=== PATIENT | female | born 1935 | race Caucasian/White ===

== ENCOUNTER → 2021-11-16 | Outpatient (REF) ==
[2021-11-16 08:06] LABS: HEMATOCRIT 29.3 % (36.0-47.0); HEMOGLOBIN 9.7 g/dl (12.0-15.5); MEAN CORPUSCULAR HEMOGLOBIN 29.8 pg (27.0-33.0); MEAN CORPUSCULAR HGB CONC 33.1 g/dl (32.0-36.5); MEAN CORPUSCULAR VOLUME 90.2 fl (80.0-96.0); PLATELET COUNT, AUTOMATED 470 10^3/uL (150-450); RED BLOOD COUNT 3.25 10^6/uL (4.00-5.40); WHITE BLOOD COUNT 4.5 10^3/uL (4.0-10.0)
[2021-11-16 08:40] LABS: ALBUMIN 2.8 GM/DL (3.2-5.2); ALT/SGPT 45 U/L (12-78); BILIRUBIN,TOTAL 0.4 MG/DL (0.2-1.0); BLOOD UREA NITROGEN 19 MG/DL (7-18); CALCIUM LEVEL 8.7 MG/DL (8.8-10.2); CARBON DIOXIDE LEVEL 33 MEQ/L (21-32); CHLORIDE LEVEL 101 MEQ/L (98-107); CREATININE FOR GFR 0.46 MG/DL (0.55-1.30); GLOMERULAR FILTRATION RATE > 60.0 (>32); GLUCOSE, FASTING 84 MG/DL (70-100); MAGNESIUM LEVEL 2.3 MG/DL (1.8-2.4); POTASSIUM SERUM 4.2 MEQ/L (3.5-5.1); SODIUM LEVEL 137 MEQ/L (136-145); TOTAL PROTEIN 5.9 GM/DL (6.4-8.2)
[2021-11-16 12:28] LABS: TOTAL 25(OH) VITAMIN D 47.6 NG/ML (30.0-100.0)
== END ==
LOC: SKLAB4 07:00
PROVIDERS: ATTEND Internal Medicine
DX: M81.0 Age-related osteoporosis without current pathological fracture (principal)

== ENCOUNTER → 2021-12-23 | Outpatient (REF) ==
[2021-12-23 11:55] LABS: HEMATOCRIT 31.7 % (36.0-47.0); HEMOGLOBIN 10.4 g/dl (12.0-15.5); MEAN CORPUSCULAR HEMOGLOBIN 31.6 pg (27.0-33.0); MEAN CORPUSCULAR HGB CONC 32.8 g/dl (32.0-36.5); MEAN CORPUSCULAR VOLUME 96.4 fl (80.0-96.0); PLATELET COUNT, AUTOMATED 316 10^3/uL (150-450); RED BLOOD COUNT 3.29 10^6/uL (4.00-5.40); WHITE BLOOD COUNT 3.7 10^3/uL (4.0-10.0)
== END ==
LOC: SKLAB4 10:04
PROVIDERS: ATTEND Internal Medicine
DX: D64.9 Anemia, unspecified (principal)

== ENCOUNTER → 2021-12-28 | Outpatient (REF) | LOC: SKLAB4 13:45 | PROVIDERS: ATTEND Internal Medicine | DX: Z20.822 Contact with and (suspected) exposure to COVID-19 (principal) ==

== ENCOUNTER → 2021-12-29 | Outpatient (REF) | LOC: SKLAB4 12:11 | PROVIDERS: ATTEND Internal Medicine | DX: M81.0 Age-related osteoporosis without current pathological fracture (principal) ==

== ENCOUNTER 2022-02-02 18:54 | Emergency (ER) | payer MEDICARE ==
[~2022-02-02] VITALS: Ht 160 cm; Wt 39.5 kg
[2022-02-02] MEDS ORDERED: NORCO, ANEXSIA 5/325MG TABLET (HYDROcodone/ACETAMINOPHEN) PO ONE (20:00)
[2022-02-02] MEDS ORDERED: NAPR-837 PO (20:03)
[2022-02-02 21:30] VITALS: BP 147/74
[2022-02-03] MEDS ORDERED: NAPR-837 PO (14:24)
== END 2022-02-02 21:36 | disposition home or self-care (01) ==
LOC: M ED 18:54 → EDBD 18:54 → M ED 21:36
DX: S52.501A Unspecified fracture of the lower end of right radius, initial encounter for closed fracture (principal); W01.0XXA Fall on same level from slipping, tripping and stumbling without subsequent striking against object, initial encounter; Z88.2 Allergy status to sulfonamides; Y92.099 Unspecified place in other non-institutional residence as the place of occurrence of the external cause; Y93.9 Activity, unspecified; Y99.9 Unspecified external cause status

== ENCOUNTER → 2022-02-09 | Outpatient (CLI) | payer MEDICARE ==
[~2022-02-09] MED LIST: ACET1TAB55 PO; CALC1WAF2 PO; COLA100C5 PO; DRIS50003 PO; ESSE250T PO; LIDO5DIS41 TD; MAGICMW SSP; NAPR-837 PO; PYRI100L PO
== END ==
LOC: M LABSMTC 10:43
PROVIDERS: ATTEND Anesthesiology
DX: Z11.52 Encounter for screening for COVID-19 (principal); Z20.822 Contact with and (suspected) exposure to COVID-19

== ENCOUNTER 2022-02-12 13:03 | Inpatient (IN) | payer MEDICARE ==
[~2022-02-12] VITALS: Ht 157.5 cm; Wt 52.3 kg
[2022-02-12] MEDS: PANTOPRAZOLE 40MG TAB (PROTONIX) PO SCH (09:00)
[~2022-02-12 13:03] MED LIST changes: -ACET1TAB55 PO
[2022-02-12 14:21] LABS: BASO # 0.1 10^3/uL (0.0-0.2); BASO % 1.1 % (0.0-1.0); EOS % 0.7 % (0.0-3.0); HEMATOCRIT 34.8 % (36.0-47.0); HEMOGLOBIN 11.6 g/dl (12.0-15.5); LYMPH # 0.9 10^3/uL (1.5-5.0); LYMPH % 16.7 % (24.0-44.0); MEAN CORPUSCULAR HEMOGLOBIN 30.7 pg (27.0-33.0); MEAN CORPUSCULAR HGB CONC 33.3 g/dl (32.0-36.5); MEAN CORPUSCULAR VOLUME 92.1 fl (80.0-96.0); MONO # 0.7 10^3/uL (0.0-0.8); MONO % 12.9 % (2.0-8.0); NEUTROPHILS # 3.8 10^3/uL (1.5-8.5); NEUTROPHILS % 68.2 % (36.0-66.0); PLATELET COUNT, AUTOMATED 330 10^3/uL (150-450); RED BLOOD COUNT 3.78 10^6/uL (4.00-5.40); WHITE BLOOD COUNT 5.6 10^3/uL (4.0-10.0)
[2022-02-12 14:42] LABS: ALBUMIN 3.4 GM/DL (3.2-5.2); ALT/SGPT 24 U/L (12-78); BILIRUBIN,TOTAL 0.3 MG/DL (0.2-1.0); BLOOD UREA NITROGEN 21 MG/DL (7-18); CARBON DIOXIDE LEVEL 33 MEQ/L (21-32); CHLORIDE LEVEL 99 MEQ/L (98-107); CREATININE FOR GFR 0.66 MG/DL (0.55-1.30); GLOMERULAR FILTRATION RATE > 60.0 (>32); GLUCOSE, FASTING 85 MG/DL (70-100); MAGNESIUM LEVEL 2.5 MG/DL (1.8-2.4); PHOSPHORUS LEVEL 4.3 MG/DL (2.5-4.9); POTASSIUM SERUM 4.3 MEQ/L (3.5-5.1); SODIUM LEVEL 138 MEQ/L (136-145); TOTAL PROTEIN 6.6 GM/DL (6.4-8.2)
[2022-02-12] MEDS ORDERED: ACET1TAB55 PO (17:33)
[2022-02-12] MEDS ORDERED: HOME MED LIST COMPLETE! XX SCH (17:35)
[2022-02-12] MEDS: dexameTHASONE 4 MG/ML 1ML VIAL (J1100 PER 1MG) IV SCH (19:57)
[2022-02-12] MEDS ORDERED: REMDESIVIR 200 MG in NS 250 ML IV ONE (20:00)
[2022-02-12] MEDS ORDERED: SODIUM CHLORIDE 0.9% INJ 10 ML SYR IV ONE (21:00)
[2022-02-13 07:22] LABS: BASO % 0.4 % (0.0-1.0); HEMATOCRIT 33.8 % (36.0-47.0); HEMOGLOBIN 11.3 g/dl (12.0-15.5); LYMPH # 0.8 10^3/uL (1.5-5.0); LYMPH % 16.1 % (24.0-44.0); MEAN CORPUSCULAR HEMOGLOBIN 30.5 pg (27.0-33.0); MEAN CORPUSCULAR HGB CONC 33.4 g/dl (32.0-36.5); MEAN CORPUSCULAR VOLUME 91.4 fl (80.0-96.0); MONO # 0.4 10^3/uL (0.0-0.8); MONO % 7.2 % (2.0-8.0); NEUTROPHILS # 3.9 10^3/uL (1.5-8.5); NEUTROPHILS % 75.9 % (36.0-66.0); PLATELET COUNT, AUTOMATED 315 10^3/uL (150-450); WHITE BLOOD COUNT 5.2 10^3/uL (4.0-10.0)
[2022-02-13 07:52] LABS: ALT/SGPT 20 U/L (12-78); BILIRUBIN,DIRECT 0.1 MG/DL (0.0-0.2); BILIRUBIN,TOTAL 0.2 MG/DL (0.2-1.0); BLOOD UREA NITROGEN 20 MG/DL (7-18); CALCIUM LEVEL 9.3 MG/DL (8.8-10.2); CARBON DIOXIDE LEVEL 31 MEQ/L (21-32); CHLORIDE LEVEL 104 MEQ/L (98-107); CREATININE FOR GFR 0.66 MG/DL (0.55-1.30); GLOMERULAR FILTRATION RATE > 60.0 (>32); GLUCOSE, FASTING 96 MG/DL (70-100); MAGNESIUM LEVEL 2.4 MG/DL (1.8-2.4); POTASSIUM SERUM 4.4 MEQ/L (3.5-5.1); SODIUM LEVEL 140 MEQ/L (136-145); TOTAL PROTEIN 6.2 GM/DL (6.4-8.2)
[2022-02-13] MEDS: ENOXAPARIN 40MG/0.4ML SYRINGE (J1650 PER 10MG) SC SCH (09:31)
[2022-02-13] MEDS: PANTOPRAZOLE 40MG TAB (PROTONIX) PO SCH (09:31)
[2022-02-13 12:00] VITALS: BP 145/72
[2022-02-13] MEDS: dexameTHASONE 4 MG/ML 1ML VIAL (J1100 PER 1MG) IV SCH (17:13)
[2022-02-13 19:19] VITALS: BP_SYST 163; BP_SYST 170; BP_DIAS 75; BP_DIAS 79
[2022-02-13] MEDS: REMDESIVIR 100 MG in NS 250 ML IV SCH (19:42)
[2022-02-13] MEDS: SODIUM CHLORIDE 0.9% INJ 10 ML SYR IV SCH (21:00)
[2022-02-14 04:55] VITALS: BP 148/88
[2022-02-14 06:16] LABS: BASO % 0.2 % (0.0-1.0); HEMATOCRIT 30.7 % (36.0-47.0); HEMOGLOBIN 10.2 g/dl (12.0-15.5); LYMPH # 0.7 10^3/uL (1.5-5.0); LYMPH % 13.3 % (24.0-44.0); MEAN CORPUSCULAR HEMOGLOBIN 30.6 pg (27.0-33.0); MEAN CORPUSCULAR HGB CONC 33.2 g/dl (32.0-36.5); MEAN CORPUSCULAR VOLUME 92.2 fl (80.0-96.0); MONO # 0.4 10^3/uL (0.0-0.8); NEUTROPHILS # 4.3 10^3/uL (1.5-8.5); NEUTROPHILS % 78.1 % (36.0-66.0); PLATELET COUNT, AUTOMATED 318 10^3/uL (150-450); RED BLOOD COUNT 3.33 10^6/uL (4.00-5.40); WHITE BLOOD COUNT 5.5 10^3/uL (4.0-10.0)
[2022-02-14 06:27] LABS: INR 0.92; PROTHROMBIN TIME 12.8 SECONDS (12.7-14.5)
[2022-02-14 06:28] LABS: PARTIAL THROMBOPLASTIN TIME 32.6 SECONDS (25.9-37.0)
[2022-02-14 06:55] LABS: ALBUMIN 2.9 GM/DL (3.2-5.2); ALT/SGPT 21 U/L (12-78); BILIRUBIN,DIRECT < 0.1 MG/DL (0.0-0.2); BILIRUBIN,TOTAL 0.4 MG/DL (0.2-1.0); BLOOD UREA NITROGEN 26 MG/DL (7-18); CALCIUM LEVEL 8.5 MG/DL (8.8-10.2); CARBON DIOXIDE LEVEL 29 MEQ/L (21-32); CHLORIDE LEVEL 105 MEQ/L (98-107); CREATININE FOR GFR 0.59 MG/DL (0.55-1.30); FERRITIN 46 NG/ML (8-252); GLOMERULAR FILTRATION RATE > 60.0 (>32); GLUCOSE, FASTING 89 MG/DL (70-100); MAGNESIUM LEVEL 2.1 MG/DL (1.8-2.4); POTASSIUM SERUM 3.9 MEQ/L (3.5-5.1); SODIUM LEVEL 138 MEQ/L (136-145); TOTAL PROTEIN 6.4 GM/DL (6.4-8.2)
[2022-02-14] MEDS: PANTOPRAZOLE 40MG TAB (PROTONIX) PO SCH (08:57)
[2022-02-14] MEDS: ENOXAPARIN 40MG/0.4ML SYRINGE (J1650 PER 10MG) SC SCH (08:57)
[2022-02-14 12:00] VITALS: BP 158/74
[2022-02-14] MEDS: dexameTHASONE 4 MG/ML 1ML VIAL (J1100 PER 1MG) IV SCH (17:42)
[2022-02-14] MEDS: REMDESIVIR 100 MG in NS 250 ML IV SCH (19:46)
[2022-02-14 20:00] VITALS: BP 120/62
[2022-02-14] MEDS: SODIUM CHLORIDE 0.9% INJ 10 ML SYR IV SCH (21:00)
[2022-02-15 06:00] VITALS: BP 150/65
[2022-02-15 06:08] LABS: BASO % 0.2 % (0.0-1.0); HEMATOCRIT 27.1 % (36.0-47.0); HEMOGLOBIN 9.4 g/dl (12.0-15.5); LYMPH # 0.6 10^3/uL (1.5-5.0); LYMPH % 11.1 % (24.0-44.0); MEAN CORPUSCULAR HEMOGLOBIN 31.6 pg (27.0-33.0); MEAN CORPUSCULAR HGB CONC 34.7 g/dl (32.0-36.5); MEAN CORPUSCULAR VOLUME 91.2 fl (80.0-96.0); MONO # 0.5 10^3/uL (0.0-0.8); NEUTROPHILS # 4.4 10^3/uL (1.5-8.5); NEUTROPHILS % 79.2 % (36.0-66.0); PLATELET COUNT, AUTOMATED 280 10^3/uL (150-450); RED BLOOD COUNT 2.97 10^6/uL (4.00-5.40); WHITE BLOOD COUNT 5.6 10^3/uL (4.0-10.0)
[2022-02-15 06:31] LABS: BLOOD UREA NITROGEN 25 MG/DL (7-18); CALCIUM LEVEL 8.2 MG/DL (8.8-10.2); CARBON DIOXIDE LEVEL 28 MEQ/L (21-32); CHLORIDE LEVEL 107 MEQ/L (98-107); CREATININE FOR GFR 0.56 MG/DL (0.55-1.30); GLOMERULAR FILTRATION RATE > 60.0 (>32); GLUCOSE, FASTING 85 MG/DL (70-100); MAGNESIUM LEVEL 2.1 MG/DL (1.8-2.4); POTASSIUM SERUM 3.9 MEQ/L (3.5-5.1); SODIUM LEVEL 139 MEQ/L (136-145)
[2022-02-15] MEDS: ENOXAPARIN 40MG/0.4ML SYRINGE (J1650 PER 10MG) SC SCH (09:18)
[2022-02-15] MEDS: PANTOPRAZOLE 40MG TAB (PROTONIX) PO SCH (09:18)
[2022-02-15 12:00] VITALS: BP 149/65
[2022-02-15] MEDS ORDERED: PANT40TA29 PO (12:45)
== END 2022-02-15 14:11 | DRG 179 ==
LOC: EDBD 13:03 → M ED 13:03 → M ED INP 16:30 → ENRESERV 02-13 06:48 → M 4MAIN 02-13 08:45
PROVIDERS: ADMIT Family Medicine; ATTEND Family Medicine
PROC: 3E0333Z Introduction of Anti-inflammatory into Peripheral Vein, Percutaneous Approach (ICD-10-PCS; principal; 2022-02-12)
PROC: XW033E5 Introduction of Remdesivir Anti-infective into Peripheral Vein, Percutaneous Approach, New Technology Group 5 (ICD-10-PCS; 2022-02-12)
DX: U07.1 COVID-19 (principal); S52.501D Unspecified fracture of the lower end of right radius, subsequent encounter for closed fracture with routine healing; M81.0 Age-related osteoporosis without current pathological fracture; Z85.810 Personal history of malignant neoplasm of tongue; Z88.2 Allergy status to sulfonamides; Z74.09 Other reduced mobility; Z66 Do not resuscitate; Z79.899 Other long term (current) drug therapy

== ENCOUNTER 2022-02-21 07:45 | Observation (INO) | payer MEDICARE ==
[2022-02-21] VITALS (9 sets, daily range): BP systolic 101–183; BP diastolic 56–86
[~2022-02-21] VITALS: Ht 152.4 cm; Wt 38.0 kg
[~2022-02-21 07:45] MED LIST changes: +ACET1TAB55 PO; +PANT40TA29 PO; +ceFAZolin SOD 2 GM in IV 1 EA IV ONE
[2022-02-21] MEDS ORDERED: LIDOCAINE 1% SDV 5ML VIAL SC PRN (07:55)
[2022-02-21] MEDS ORDERED: LR 1,000 ML IV SCH ×2 (07:55→10:25)
[2022-02-21] MEDS ORDERED: propofoL 200 MG/20 ML VIAL As Ordered ONE (08:07)
[2022-02-21] MEDS ORDERED: LIDOCAINE 2% 100MG/5ML SDV (FOR ANES.) As Ordered ONE (08:09)
[2022-02-21 08:26] LABS: HEMATOCRIT 35.5 % (36.0-47.0); MEAN CORPUSCULAR HEMOGLOBIN 31.3 pg (27.0-33.0); MEAN CORPUSCULAR HGB CONC 33.8 g/dl (32.0-36.5); MEAN CORPUSCULAR VOLUME 92.4 fl (80.0-96.0); PLATELET COUNT, AUTOMATED 345 10^3/uL (150-450); RED BLOOD COUNT 3.84 10^6/uL (4.00-5.40); WHITE BLOOD COUNT 4.8 10^3/uL (4.0-10.0)
[2022-02-21] MEDS ORDERED: LIDOCAINE 2% 100MG/5ML SDV (FOR ANES.) PN ONE (08:30)
[2022-02-21] MEDS ORDERED: ROPIvacaine 0.5% 30ML INJECTION (J2795 PER 1MG) PN ONE (08:30)
[2022-02-21] MEDS ORDERED: dexameTHASONE 10MG/1ML VIAL PRES.FREE (J1100 PER 1MG) PN ONE (08:30)
[2022-02-21] MEDS ORDERED: MEPIVACAINE HCL 2% 20 ML VIAL (J0670) PN ONE (08:30)
[2022-02-21] MEDS ORDERED: fentaNYL 100 MCG/2 ML INJECTION IV PRN ×2 (08:30→10:25)
[2022-02-21] MEDS ORDERED: MIDAZOLAM INJ 2MG/2ML VIAL (J2250 PER 1MG) IV PRN (08:30)
[2022-02-21] MEDS ORDERED: LIDOCAINE 1% SDV 5ML VIAL PN ONE (08:30)
[2022-02-21] MEDS ORDERED: BACITRACIN OINTMENT 30GM TUBE As Ordered ONE (08:39)
[2022-02-21] MEDS ORDERED: LIDOCAINE 2% MDV 20ML VIAL As Ordered ONE (08:50)
[2022-02-21] MEDS ORDERED: ONDANSETRON 4MG/2ML VIAL As Ordered ONE (09:14)
[2022-02-21] MEDS ORDERED: oxyCODONE 5MG TAB PO PRN (10:25)
[2022-02-21] MEDS ORDERED: ONDANSETRON 4MG/2ML VIAL IV PRN ×2 (10:25→13:55)
[2022-02-21] MEDS ORDERED: HYDROMORPHONE HCL 0.5 MG/ 0.5 ML SYRINGE (J1170 PER 1) IV PRN (10:25)
[2022-02-21] MEDS ORDERED: IBUPROFEN 600MG TAB PO PRN (10:40)
[2022-02-21] MEDS ORDERED: ACETAMINOPHEN TAB 650MG DOSE (2X325MG) PO PRN (10:40)
[2022-02-21] MEDS ORDERED: hydrALAZINE 20MG/ML 1ML VIAL (J0360 PER 20MG) IV ONE (11:30)
[2022-02-21] MEDS ORDERED: hydrALAZINE 20MG/ML 1ML VIAL (J0360 PER 20MG) As Ordered ONE (11:36)
[2022-02-21] MEDS ORDERED: PERCOCET 5MG/325MG TAB PO PRN ×2 (13:55)
[2022-02-21] MEDS: DOCUSATE SODIUM 100MG CAPSULE PO SCH (16:00)
[2022-02-21] MEDS: LIDOCAINE 5% (LIDODERM) PATCH TD SCH (16:00)
[2022-02-21] MEDS: PANTOPRAZOLE 40MG TAB (PROTONIX) PO SCH (16:00)
[2022-02-21] MEDS: ceFAZolin SOD 1 GM in D5W MINI-BAG PLUS 50 ML IV SCH (16:27)
[2022-02-21] MEDS ORDERED: **NOTE PATIENT COMMENT** MISC XX SCH (21:00)
[2022-02-22] MEDS: ceFAZolin SOD 1 GM in D5W MINI-BAG PLUS 50 ML IV SCH ×2 (01:08→09:00)
[2022-02-22 01:23] VITALS: BP 122/57
[2022-02-22 05:45] VITALS: BP 121/57
[2022-02-22 05:59] LABS: HEMATOCRIT 27.7 % (36.0-47.0); MEAN CORPUSCULAR HEMOGLOBIN 31.1 pg (27.0-33.0); MEAN CORPUSCULAR HGB CONC 34.3 g/dl (32.0-36.5); MEAN CORPUSCULAR VOLUME 90.8 fl (80.0-96.0); PLATELET COUNT, AUTOMATED 285 10^3/uL (150-450); RED BLOOD COUNT 3.05 10^6/uL (4.00-5.40); WHITE BLOOD COUNT 8.1 10^3/uL (4.0-10.0)
[2022-02-22 06:06] LABS: HEMOGLOBIN 9.5 g/dl (12.0-15.5)
[2022-02-22 06:32] LABS: BLOOD UREA NITROGEN 29 MG/DL (7-18); CARBON DIOXIDE LEVEL 29 MEQ/L (21-32); CHLORIDE LEVEL 102 MEQ/L (98-107); CREATININE FOR GFR 0.73 MG/DL (0.55-1.30); GLOMERULAR FILTRATION RATE > 60.0 (>32); GLUCOSE, FASTING 73 MG/DL (70-100); POTASSIUM SERUM 4.3 MEQ/L (3.5-5.1); SODIUM LEVEL 136 MEQ/L (136-145)
[2022-02-22] MEDS ORDERED: PERCOCET PO ×2 (07:25→13:22)
[2022-02-22] MEDS: PANTOPRAZOLE 40MG TAB (PROTONIX) PO SCH (09:00)
[2022-02-22] MEDS: LIDOCAINE 5% (LIDODERM) PATCH TD SCH (09:00)
[2022-02-22] MEDS: DOCUSATE SODIUM 100MG CAPSULE PO SCH (09:00)
[2022-02-22] MEDS ORDERED: ENOXAPARIN 40MG/0.4ML SYRINGE (J1650 PER 10MG) SC SCH (09:00)
[2022-02-22 10:00] VITALS: BP 143/56
== END 2022-02-22 13:05 ==
LOC: M SDC 07:45 → M MS5PR 07:46
PROVIDERS: ADMIT Internal Medicine; ATTEND Internal Medicine
DX: S52.532A Colles' fracture of left radius, initial encounter for closed fracture (principal); W19.XXXA Unspecified fall, initial encounter; Y92.129 Unspecified place in nursing home as the place of occurrence of the external cause; Y93.9 Activity, unspecified; Y99.9 Unspecified external cause status; I10 Essential (primary) hypertension; Z86.16 Personal history of COVID-19; K21.9 Gastro-esophageal reflux disease without esophagitis; Z88.2 Allergy status to sulfonamides
CPT/HCPCS: 25607; 36415; 76000; 80048; 85027; 87428; 96365; 96366; 97110; 97167; 97530; 97535; C1713; G0378; J0360; J0690; J1100; J1650; J2405; J2795; J3010

== ENCOUNTER → 2022-03-03 | Outpatient (CLI) | payer MEDICARE ==
[~2022-03-03] MED LIST changes: +PERCOCET PO; -ceFAZolin SOD 2 GM in IV 1 EA IV ONE
== END ==
LOC: M SOG 07:53
PROVIDERS: ATTEND Orthopaedic Surgery Hand Surgery
DX: S52.552D Other extraarticular fracture of lower end of left radius, subsequent encounter for closed fracture with routine healing (principal)

== ENCOUNTER → 2022-03-24 | Outpatient (CLI) | payer MEDICARE | LOC: M SOG 08:08 | PROVIDERS: ATTEND Orthopaedic Surgery Hand Surgery | DX: Z47.89 Encounter for other orthopedic aftercare (principal); S52.552D Other extraarticular fracture of lower end of left radius, subsequent encounter for closed fracture with routine healing; W18.30XD Fall on same level, unspecified, subsequent encounter ==

== ENCOUNTER → 2022-10-05 | Outpatient (REF) ==
[2022-10-05 09:50] LABS: HEMATOCRIT 31.9 % (36.0-47.0); HEMOGLOBIN 10.5 g/dl (12.0-15.5); MEAN CORPUSCULAR HEMOGLOBIN 31.8 pg (27.0-33.0); MEAN CORPUSCULAR HGB CONC 32.9 g/dl (32.0-36.5); MEAN CORPUSCULAR VOLUME 96.7 fl (80.0-96.0); PLATELET COUNT, AUTOMATED 625 10^3/uL (150-450); WHITE BLOOD COUNT 4.2 10^3/uL (4.0-10.0)
[2022-10-05 10:23] LABS: BLOOD UREA NITROGEN 15 MG/DL (9-23); CALCIUM LEVEL 8.6 MG/DL (8.3-10.6); CARBON DIOXIDE LEVEL 28 MMOL/L (20-31); CHLORIDE LEVEL 101 MMOL/L (98-107); GLOMERULAR FILTRATION RATE > 60.0 (>32); GLUCOSE, FASTING 86 MG/DL (74-106); POTASSIUM SERUM 4.3 MMOL/L (3.5-5.1); SODIUM LEVEL 135 MMOL/L (136-145)
== END ==
PROVIDERS: ATTEND Physician Assistant
DX: I10 Essential (primary) hypertension (principal)

== ENCOUNTER → 2022-10-12 | Outpatient (REF) ==
[2022-10-12 11:42] LABS: HEMOGLOBIN 11.4 g/dl (12.0-15.5); MEAN CORPUSCULAR HGB CONC 32.6 g/dl (32.0-36.5); MEAN CORPUSCULAR VOLUME 98.3 fl (80.0-96.0); PLATELET COUNT, AUTOMATED 402 10^3/uL (150-450); RED BLOOD COUNT 3.56 10^6/uL (4.00-5.40)
[2022-10-12 12:08] LABS: BLOOD UREA NITROGEN 19 MG/DL (9-23); CARBON DIOXIDE LEVEL 29 MMOL/L (20-31); CHLORIDE LEVEL 101 MMOL/L (98-107); CREATININE FOR GFR 0.55 MG/DL (0.55-1.30); GLOMERULAR FILTRATION RATE > 60.0 (>32); GLUCOSE, FASTING 139 MG/DL (74-106); POTASSIUM SERUM 3.8 MMOL/L (3.5-5.1); SODIUM LEVEL 139 MMOL/L (136-145)
== END ==
PROVIDERS: ATTEND Physician Assistant
DX: I10 Essential (primary) hypertension (principal)

== ENCOUNTER → 2022-11-09 | Outpatient (REF) ==
[2022-11-09 12:44] LABS: HEMATOCRIT 35.8 % (36.0-47.0); MEAN CORPUSCULAR HEMOGLOBIN 32.2 pg (27.0-33.0); MEAN CORPUSCULAR HGB CONC 33.5 g/dl (32.0-36.5); PLATELET COUNT, AUTOMATED 303 10^3/uL (150-450); RED BLOOD COUNT 3.73 10^6/uL (4.00-5.40); WHITE BLOOD COUNT 4.5 10^3/uL (4.0-10.0)
[2022-11-09 13:14] LABS: BLOOD UREA NITROGEN 19 MG/DL (9-23); CARBON DIOXIDE LEVEL 32 MMOL/L (20-31); CHLORIDE LEVEL 101 MMOL/L (98-107); GLOMERULAR FILTRATION RATE > 60.0 (>32); GLUCOSE, FASTING 147 MG/DL (74-106); POTASSIUM SERUM 4.1 MMOL/L (3.5-5.1); SODIUM LEVEL 138 MMOL/L (136-145)
== END ==
PROVIDERS: ATTEND Physician Assistant
DX: I10 Essential (primary) hypertension (principal)

== ENCOUNTER → 2022-12-14 | Outpatient (REF) | PROVIDERS: ATTEND Internal Medicine | DX: I10 Essential (primary) hypertension (principal); Z53.8 Procedure and treatment not carried out for other reasons ==

== ENCOUNTER 2023-08-22 16:24 | Inpatient (IN) | payer MEDICARE ==
[~2023-08-22] VITALS: Ht 160 cm; Wt 38.0 kg
[2023-08-22 17:35] LABS: VENOUS HCO3 26.7 MMOL/L (23.0-27.0); VENOUS O2 SATURATION 34.6 % (60.0-80.0); VENOUS PARTIAL PRESSURE CO2 52.6 mmHg (38.0-50.0); VENOUS PARTIAL PRESSURE O2 21.8 mmHg (30.0-50.0); VENOUS PH 7.323 UNITS (7.330-7.430); VENOUS STANDARD HCO3 23.2 MMOL/L; VENOUS TOTAL CO2 28.3 MMOL/L (24.0-28.0)
[2023-08-22 17:39] LABS: BASO % 0.7 % (0.0-1.0); EOS # 0.1 10^3/uL (0.0-0.5); EOS % 1.6 % (0.0-3.0); HEMATOCRIT 33.9 % (36.0-47.0); HEMOGLOBIN 11.1 g/dl (12.0-15.5); LYMPH # 0.8 10^3/uL (1.5-5.0); LYMPH % 14.3 % (24.0-44.0); MEAN CORPUSCULAR HEMOGLOBIN 31.2 pg (27.0-33.0); MEAN CORPUSCULAR HGB CONC 32.7 g/dl (32.0-36.5); MEAN CORPUSCULAR VOLUME 95.2 fl (80.0-96.0); MONO # 0.7 10^3/uL (0.0-0.8); NEUTROPHILS # 3.9 10^3/uL (1.5-8.5); PLATELET COUNT, AUTOMATED 293 10^3/uL (150-450); RED BLOOD COUNT 3.56 10^6/uL (4.00-5.40); WHITE BLOOD COUNT 5.5 10^3/uL (4.0-10.0)
[2023-08-22] MEDS ORDERED: DOPamine HCL 800 MG in IV 1 EA IV SCH (17:50)
[2023-08-22 17:55] LABS: INR 1.06; PROTHROMBIN TIME 13.5 SECONDS (12.5-14.5)
[2023-08-22 17:56] LABS: PARTIAL THROMBOPLASTIN TIME 31.8 SECONDS (24.8-34.2)
[2023-08-22 18:11] LABS: ALBUMIN 3.7 G/DL (3.2-5.2); BILIRUBIN,DIRECT 0.2 MG/DL (<0.4); BILIRUBIN,TOTAL 0.4 MG/DL (0.3-1.2); CALCIUM LEVEL 8.7 MG/DL (8.3-10.6); CK-MB VALUE MASS 4.6 NG/ML (<3.6); CREATININE FOR GFR 1.03 MG/DL (0.55-1.30); MB/CK RELATIVE INDEX 2.73 (< OR =4); POTASSIUM SERUM 4.2 MMOL/L (3.5-5.1); TOTAL PROTEIN 6.5 G/DL (5.7-8.2)
[2023-08-22 18:14] LABS: THYROID STIMULATING HORMONE 4.334 uIU/ML (0.55-4.78)
[2023-08-22 18:15] LABS: FREE T4 1.15 NG/DL (0.89-1.76)
[2023-08-22] MEDS ORDERED: FUROSEMIDE 20MG/2ML VIAL IV ONE (18:20)
[2023-08-22 18:22] LABS: RSV AMPLIFICATION NEGATIVE (NEGATIVE)
[2023-08-22 19:58] LABS: MAGNESIUM LEVEL 3.2 MG/DL (1.8-2.4); PHOSPHORUS LEVEL 5.3 MG/DL (2.4-5.1)
[2023-08-22 19:58] LABS: CK-MB VALUE MASS 3.8 NG/ML (<3.6); MB/CK RELATIVE INDEX 2.2 (< OR =4)
[2023-08-22] MEDS ORDERED: MAGN300C PO (20:12)
[2023-08-22] MEDS ORDERED: VITA100T14 PO (20:12)
[2023-08-22] MEDS ORDERED: SENN-85 PO (20:13)
[2023-08-22] MEDS ORDERED: PERI12LIQ SSP (20:15)
[2023-08-22] MEDS ORDERED: HOME MED LIST COMPLETE! XX SCH (20:20)
[2023-08-22] MEDS: DOBUTamine HCL 500,000 MCG in IV 1 EA IV SCH (20:25)
[2023-08-22 22:15] VITALS: BP 220/86; TEMP 98.7; O2SAT 99
[2023-08-22 22:30] VITALS: BP 205/81; O2SAT 97
[2023-08-22 23:00] VITALS: BP 205/79; O2SAT 98
[2023-08-22 23:30] VITALS: BP 200/77; O2SAT 97
[2023-08-23] VITALS (47 sets, daily range): BP systolic 148–208; BP diastolic 63–84; TEMP 97.8–98.6; O2SAT 92–99
[2023-08-23 05:36] LABS: ALBUMIN 3.1 G/DL (3.2-5.2); BILIRUBIN,TOTAL 0.5 MG/DL (0.3-1.2); CALCIUM LEVEL 8.2 MG/DL (8.3-10.6); CREATININE FOR GFR 1.05 MG/DL (0.55-1.30); GLOMERULAR FILTRATION RATE 52.8 (>32); MAGNESIUM LEVEL 2.9 MG/DL (1.8-2.4); POTASSIUM SERUM 4.1 MMOL/L (3.5-5.1); TOTAL PROTEIN 5.4 G/DL (5.7-8.2)
[2023-08-23] MEDS ORDERED: ENOXAPARIN 30MG/0.3ML SYRINGE (J1650 PER 10MG) SC SCH (09:00)
[2023-08-23] MEDS ORDERED: hydrALAZINE 20MG/ML 1ML VIAL IV PRN (15:55)
[2023-08-24] VITALS (24 sets, daily range): BP systolic 120–211; BP diastolic 64–100; TEMP 97.2–98.9; O2SAT 92–100
[2023-08-24] MEDS: DOBUTamine HCL 500,000 MCG in IV 1 EA IV SCH (04:07)
[2023-08-24 05:24] LABS: BASO % 0.8 % (0.0-1.0); EOS # 0.2 10^3/uL (0.0-0.5); EOS % 3.2 % (0.0-3.0); LYMPH # 1.2 10^3/uL (1.5-5.0); LYMPH % 24.4 % (24.0-44.0); MEAN CORPUSCULAR HEMOGLOBIN 31.2 pg (27.0-33.0); MEAN CORPUSCULAR HGB CONC 33.3 g/dl (32.0-36.5); MEAN CORPUSCULAR VOLUME 93.5 fl (80.0-96.0); MONO # 0.7 10^3/uL (0.0-0.8); MONO % 14.5 % (2.0-8.0); NEUTROPHILS # 2.7 10^3/uL (1.5-8.5); NEUTROPHILS % 56.7 % (36.0-66.0); PLATELET COUNT, AUTOMATED 260 10^3/uL (150-450); RED BLOOD COUNT 3.21 10^6/uL (4.00-5.40); WHITE BLOOD COUNT 4.8 10^3/uL (4.0-10.0)
[2023-08-24 05:44] LABS: ALBUMIN 3.1 G/DL (3.2-5.2); BILIRUBIN,TOTAL 0.6 MG/DL (0.3-1.2); CALCIUM LEVEL 8.3 MG/DL (8.3-10.6); CREATININE FOR GFR 1.15 MG/DL (0.55-1.30); GLOMERULAR FILTRATION RATE 47.5 (>32); MAGNESIUM LEVEL 3.3 MG/DL (1.8-2.4); POTASSIUM SERUM 4.7 MMOL/L (3.5-5.1); TOTAL PROTEIN 5.4 G/DL (5.7-8.2)
[2023-08-24] MEDS ORDERED: LR 1,000 ML IV SCH ×2 (06:00→11:55)
[2023-08-24] MEDS ORDERED: CARVedilol 3.125 MG TAB PO SCH (09:00)
[2023-08-24] MEDS ORDERED: LIDOCAINE 2% 100MG/5ML SDV (FOR ANES.) As Ordered ONE (09:24)
[2023-08-24] MEDS ORDERED: fentaNYL 100 MCG/2 ML INJECTION As Ordered ONE (09:24)
[2023-08-24] MEDS ORDERED: propofoL 200 MG/20 ML VIAL As Ordered ONE (09:24)
[2023-08-24] MEDS ORDERED: ceFAZolin SOD 1 GM in D5W MINI-BAG PLUS 50 ML IV ONE (09:30)
[2023-08-24] MEDS ORDERED: LIDOCAINE 1% SDV 30ML VIAL As Ordered ONE (09:39)
[2023-08-24] MEDS ORDERED: ISOVUE-M 300 61% 15ML VIAL As Ordered ONE (09:40)
[2023-08-24] MEDS ORDERED: AMIODARONE 150MG/3ML VIAL As Ordered ONE (09:40)
[2023-08-24] MEDS ORDERED: ceFAZolin 1GM VIAL As Ordered ONE (10:48)
[2023-08-24] MEDS ORDERED: ONDANSETRON 4MG 2ML VIAL IV PRN (11:55)
[2023-08-24] MEDS ORDERED: fentaNYL 100 MCG/2 ML INJECTION IV PRN (11:55)
[2023-08-24] MEDS ORDERED: HYDROMORPHONE HCL 0.5 MG/ 0.5 ML SYRINGE IV PRN (11:55)
[2023-08-24] MEDS ORDERED: oxyCODONE 5MG TAB PO PRN (11:55)
[2023-08-24] MEDS ORDERED: FUROSEMIDE 40MG/4ML VIAL As Ordered ONE (11:59)
[2023-08-24] MEDS ORDERED: FUROSEMIDE 40MG/4ML VIAL IV ONE ×2 (12:00→15:15)
[2023-08-24] MEDS ORDERED: MAGNESIUM OXIDE 400MG TAB (MAG-OX) PO SCH (12:05)
[2023-08-24] MEDS ORDERED: ACETAMINOPHEN 325 MG TAB PO PRN (12:05)
[2023-08-24] MEDS ORDERED: ONDANSETRON 4MG 2ML VIAL As Ordered ONE (12:19)
[2023-08-24] MEDS ORDERED: NITROGLYCERIN 2% OINT 1 GM *U/D* PKT TOP ONE ×3 (12:30→14:00)
[2023-08-24] MEDS: METOPROLOL 5 MG/5 ML VIAL IV SCH ×3 (13:31→13:52)
[2023-08-24] MEDS ORDERED: hydrALAZINE 20MG/ML 1ML VIAL IV ONE (14:00)
[2023-08-24] MEDS ORDERED: CARVedilol 3.125 MG TAB PO ONE (15:15)
[2023-08-24] MEDS: NEPHRO-VIT TAB (NEPHROCAPS) PO SCH (15:23)
[2023-08-24] MEDS ORDERED: CARVedilol 6.25 MG TAB PO ONE (17:25)
[2023-08-24] MEDS: ceFAZolin SOD 1 GM in D5W MINI-BAG PLUS 50 ML IV SCH (20:11)
[2023-08-24] MEDS: CARVedilol 6.25 MG TAB PO SCH (20:11)
[2023-08-25] VITALS (8 sets, daily range): BP systolic 136–190; BP diastolic 66–84; TEMP 96.4–98.1; O2SAT 90–97
[2023-08-25] MEDS: ceFAZolin SOD 1 GM in D5W MINI-BAG PLUS 50 ML IV SCH ×2 (04:31→12:06)
[2023-08-25] MEDS: CARVedilol 6.25 MG TAB PO SCH ×3 (04:33→15:17)
[2023-08-25 07:13] LABS: CALCIUM LEVEL 8.3 MG/DL (8.3-10.6); CREATININE FOR GFR 1.01 MG/DL (0.55-1.30); GLOMERULAR FILTRATION RATE 55.2 (>32); PHOSPHORUS LEVEL 4.8 MG/DL (2.4-5.1); POTASSIUM SERUM 3.6 MMOL/L (3.5-5.1)
[2023-08-25] MEDS: NEPHRO-VIT TAB (NEPHROCAPS) PO SCH (08:51)
[2023-08-25] MEDS ORDERED: FUROSEMIDE 10MG PER 1/2 TABLET PO ONE (09:00)
[2023-08-25] MEDS ORDERED: TORSEMIDE 10 MG TABLET PO ONE (14:15)
[2023-08-25] MEDS: CARVedilol 12.5 MG TAB PO SCH (20:38)
[2023-08-26] VITALS (10 sets, daily range): BP systolic 118–210; BP diastolic 66–96; TEMP 97.2–98.3; O2SAT 93–96
[2023-08-26] MEDS ORDERED: hydrALAZINE 20MG/ML 1ML VIAL IV ONE (01:00)
[2023-08-26 05:05] LABS: BASO # 0.1 10^3/uL (0.0-0.2); EOS # 0.2 10^3/uL (0.0-0.5); EOS % 3.9 % (0.0-3.0); HEMATOCRIT 31.2 % (36.0-47.0); HEMOGLOBIN 10.6 g/dl (12.0-15.5); LYMPH # 0.7 10^3/uL (1.5-5.0); LYMPH % 13.4 % (24.0-44.0); MEAN CORPUSCULAR HEMOGLOBIN 31.5 pg (27.0-33.0); MEAN CORPUSCULAR VOLUME 92.9 fl (80.0-96.0); MONO # 0.7 10^3/uL (0.0-0.8); MONO % 14.6 % (2.0-8.0); NEUTROPHILS # 3.3 10^3/uL (1.5-8.5); NEUTROPHILS % 66.9 % (36.0-66.0); PLATELET COUNT, AUTOMATED 234 10^3/uL (150-450); RED BLOOD COUNT 3.36 10^6/uL (4.00-5.40); WHITE BLOOD COUNT 4.9 10^3/uL (4.0-10.0)
[2023-08-26 05:33] LABS: BLOOD UREA NITROGEN 30 MG/DL (9-23); CALCIUM LEVEL 8.7 MG/DL (8.3-10.6); CARBON DIOXIDE LEVEL 32 MMOL/L (20-31); CHLORIDE LEVEL 105 MMOL/L (98-107); CREATININE FOR GFR 0.91 MG/DL (0.55-1.30); GLOMERULAR FILTRATION RATE > 60.0 (>32); GLUCOSE, FASTING 86 MG/DL (74-106); PHOSPHORUS LEVEL 4.1 MG/DL (2.4-5.1); POTASSIUM SERUM 3.6 MMOL/L (3.5-5.1); SODIUM LEVEL 145 MMOL/L (136-145)
[2023-08-26] MEDS: SPIRONOLACTONE 12.5MG PER 1/2 TABLET PO SCH (08:09)
[2023-08-26] MEDS: TORSEMIDE 10 MG TABLET PO SCH (08:10)
[2023-08-26] MEDS: CARVedilol 12.5 MG TAB PO SCH ×2 (08:10→20:24)
[2023-08-26] MEDS: NEPHRO-VIT TAB (NEPHROCAPS) PO SCH (10:42)
[2023-08-26] MEDS ORDERED: NITROGLYCERIN 2% OINT 1 GM *U/D* PKT TOP ONE (12:15)
[2023-08-26] MEDS ORDERED: lisinopriL 5 MG TAB PO ONE (17:40)
[2023-08-27] VITALS (7 sets, daily range): BP systolic 146–190; BP diastolic 56–88; TEMP 97.4–99.1; O2SAT 92–98
[2023-08-27 06:19] LABS: ALBUMIN 2.9 G/DL (3.2-5.2); BLOOD UREA NITROGEN 28 MG/DL (9-23); CALCIUM LEVEL 8.4 MG/DL (8.3-10.6); CARBON DIOXIDE LEVEL 32 MMOL/L (20-31); CHLORIDE LEVEL 105 MMOL/L (98-107); CREATININE FOR GFR 0.82 MG/DL (0.55-1.30); GLOMERULAR FILTRATION RATE > 60.0 (>32); GLUCOSE, FASTING 88 MG/DL (74-106); PHOSPHORUS LEVEL 3.6 MG/DL (2.4-5.1); POTASSIUM SERUM 3.6 MMOL/L (3.5-5.1); SODIUM LEVEL 146 MMOL/L (136-145)
[2023-08-27] MEDS: SPIRONOLACTONE 12.5MG PER 1/2 TABLET PO SCH (08:07)
[2023-08-27] MEDS: CARVedilol 12.5 MG TAB PO SCH ×2 (08:07→20:48)
[2023-08-27] MEDS: TORSEMIDE 10 MG TABLET PO SCH (08:07)
[2023-08-27] MEDS: NEPHRO-VIT TAB (NEPHROCAPS) PO SCH (08:07)
[2023-08-27] MEDS ORDERED: LISI10TA22 PO (09:11)
[2023-08-27] MEDS ORDERED: CARV12.5 PO (09:11)
[2023-08-27] MEDS ORDERED: ALDA25TA2 PO (09:11)
[2023-08-27] MEDS ORDERED: SELF1KIT MC (09:11)
[2023-08-27] MEDS ORDERED: TORS10TA3 PO (09:11)
[2023-08-28 03:56] VITALS: BP 150/82; TEMP 98; O2SAT 97
[2023-08-28 07:21] LABS: ALBUMIN 2.9 G/DL (3.2-5.2); BLOOD UREA NITROGEN 27 MG/DL (9-23); CALCIUM LEVEL 8.9 MG/DL (8.3-10.6); CARBON DIOXIDE LEVEL 33 MMOL/L (20-31); CHLORIDE LEVEL 105 MMOL/L (98-107); CREATININE FOR GFR 0.78 MG/DL (0.55-1.30); GLOMERULAR FILTRATION RATE > 60.0 (>32); GLUCOSE, FASTING 89 MG/DL (74-106); PHOSPHORUS LEVEL 3.5 MG/DL (2.4-5.1); POTASSIUM SERUM 3.5 MMOL/L (3.5-5.1); SODIUM LEVEL 146 MMOL/L (136-145)
[2023-08-28 08:06] VITALS: BP 194/88; TEMP 97.1; O2SAT 95
[2023-08-28] MEDS: SPIRONOLACTONE 12.5MG PER 1/2 TABLET PO SCH (09:21)
[2023-08-28 09:22] VITALS: BP 194/88
[2023-08-28] MEDS: CARVedilol 12.5 MG TAB PO SCH (09:22)
[2023-08-28] MEDS: TORSEMIDE 10 MG TABLET PO SCH (09:22)
[2023-08-28] MEDS: NEPHRO-VIT TAB (NEPHROCAPS) PO SCH (09:22)
[2023-08-28 11:51] VITALS: BP 136/70
== END 2023-08-28 13:30 | disposition home health service (06) | DRG 243 ==
LOC: M ED 16:24 → M ED INP 19:20 → ENRESERV 20:57 → M ICU 21:53 → M PCU 08-24 13:31
PROVIDERS: ADMIT Internal Medicine Pulmonary Disease; ATTEND General Practice
PROC: 0JH606Z Insertion of Pacemaker, Dual Chamber into Chest Subcutaneous Tissue and Fascia, Open Approach (ICD-10-PCS; 2023-08-24)
PROC: 02H60JZ Insertion of Pacemaker Lead into Right Atrium, Open Approach (ICD-10-PCS; 2023-08-24)
PROC: 02HK0JZ Insertion of Pacemaker Lead into Right Ventricle, Open Approach (ICD-10-PCS; principal; 2023-08-24 09:45)
DX: I44.2 Atrioventricular block, complete (principal); I50.32 Chronic diastolic (congestive) heart failure; E87.0 Hyperosmolality and hypernatremia; F03.90 Unspecified dementia, unspecified severity, without behavioral disturbance, psychotic disturbance, mood disturbance, and anxiety; I11.0 Hypertensive heart disease with heart failure; I45.89 Other specified conduction disorders; I44.7 Left bundle-branch block, unspecified; I16.0 Hypertensive urgency; D63.8 Anemia in other chronic diseases classified elsewhere; Z85.810 Personal history of malignant neoplasm of tongue; R47.1 Dysarthria and anarthria; Z86.16 Personal history of COVID-19; M81.0 Age-related osteoporosis without current pathological fracture; Z66 Do not resuscitate; Z79.899 Other long term (current) drug therapy; Z88.2 Allergy status to sulfonamides

== ENCOUNTER → 2023-08-29 | Outpatient (CLI) | payer MEDICARE ==
[~2023-08-29] MED LIST changes: +ALDA25TA2 PO; +CARV12.5 PO; +LISI10TA22 PO; +MAGN300C PO; +PERI12LIQ SSP; +SELF1KIT MC; +SENN-85 PO; +TORS10TA3 PO; +VITA100T14 PO
[2023-08-29 17:27] LABS: BLOOD UREA NITROGEN 26 MG/DL (9-23); CALCIUM LEVEL 8.8 MG/DL (8.3-10.6); CARBON DIOXIDE LEVEL 35 MMOL/L (20-31); CHLORIDE LEVEL 101 MMOL/L (98-107); CREATININE FOR GFR 0.77 MG/DL (0.55-1.30); GLOMERULAR FILTRATION RATE > 60.0 (>32); GLUCOSE, FASTING 100 MG/DL (74-106); POTASSIUM SERUM 3.4 MMOL/L (3.5-5.1); SODIUM LEVEL 141 MMOL/L (136-145)
== END ==
LOC: M LAB 16:14
PROVIDERS: ATTEND Internal Medicine
DX: E87.0 Hyperosmolality and hypernatremia (principal); I50.9 Heart failure, unspecified

== ENCOUNTER → 2023-08-30 | Outpatient (CLI) | payer MEDICARE ==
[2023-08-30 13:09] LABS: BLOOD UREA NITROGEN 34 MG/DL (9-23); CALCIUM LEVEL 9.3 MG/DL (8.3-10.6); CARBON DIOXIDE LEVEL 35 MMOL/L (20-31); CHLORIDE LEVEL 102 MMOL/L (98-107); CREATININE FOR GFR 0.82 MG/DL (0.55-1.30); GLOMERULAR FILTRATION RATE > 60.0 (>32); GLUCOSE, FASTING 174 MG/DL (74-106); POTASSIUM SERUM 3.4 MMOL/L (3.5-5.1); SODIUM LEVEL 143 MMOL/L (136-145)
== END ==
LOC: M LAB 11:05
PROVIDERS: ATTEND General Practice
DX: E87.0 Hyperosmolality and hypernatremia (principal)

== ENCOUNTER → 2023-09-08 | Outpatient (REF) | payer MEDICARE ==
[2023-09-08 17:22] LABS: PERCENT SATURATION 23.5 % (13.2-45.0)
[2023-09-08 17:24] LABS: FERRITIN 109.9 NG/ML (7.3-270.7)
== END ==
LOC: M LAB REF 16:21
PROVIDERS: ATTEND Internal Medicine
DX: D64.9 Anemia, unspecified (principal)

== ENCOUNTER → 2024-10-15 | Outpatient (REF) | payer MEDICARE ==
[2024-10-15 17:32] LABS: PERCENT SATURATION 33.8 % (13.2-45.0)
[2024-10-15 17:33] LABS: FERRITIN 67.4 NG/ML (7.3-270.7)
== END ==
LOC: M LAB REF 16:48
PROVIDERS: ATTEND Internal Medicine
DX: D64.9 Anemia, unspecified (principal)

== ENCOUNTER 2025-03-13 11:23 | Inpatient (IN) | payer MEDICARE ==
[~2025-03-13] VITALS: Ht 162.6 cm; Wt 41.7 kg
[~2025-03-13 11:23] MED LIST changes: -ESSE250T PO; +LIDO1ADH93 TD; -LIDO5DIS41 TD; +MAGN250T17 PO
[2025-03-13] MEDS: ACETAMINOPHEN 500 MG TAB PO ONE (14:25)
[2025-03-13] MEDS ORDERED: CARV6.25 PO (14:38)
[2025-03-13] MEDS ORDERED: DICL20GE TOP (14:38)
[2025-03-13] MEDS ORDERED: ACET650T61 PO (14:38)
[2025-03-13] MEDS ORDERED: LISI10TA22 PO (14:38)
[2025-03-13] MEDS ORDERED: VITA1CAP25 PO (14:38)
[2025-03-13] MEDS ORDERED: HOME MED LIST COMPLETE! XX SCH (14:40)
[2025-03-13 16:40] LABS: BASO # 0.0 10^3/uL (0.0-0.2); BASO % 0.3 % (0.0-1.0); EOS # 0.1 10^3/uL (0.0-0.5); EOS % 0.7 % (0.0-3.0); LYMPH # 0.6 10^3/uL (1.5-5.0); LYMPH % 7.3 % (24.0-44.0); MONO # 0.8 10^3/uL (0.0-0.8); MONO % 9.4 % (2.0-8.0); NEUTROPHILS # 7.1 10^3/uL (1.5-8.5); NEUTROPHILS % 82.0 % (36.0-66.0); PLATELET COUNT, AUTOMATED 239 10^3/uL (150-450)
[2025-03-13 16:52] LABS: INR 0.89
[2025-03-13 17:01] LABS: CALCIUM LEVEL 8.6 MG/DL (8.3-10.6); CARBON DIOXIDE LEVEL 31.0 MMOL/L (20-31); CHLORIDE LEVEL 101.0 MMOL/L (98-107); CREATININE FOR GFR 0.62 MG/DL (0.55-1.30); GLOMERULAR FILTRATION RATE 85.1 (>32); POTASSIUM SERUM 4.7 MMOL/L (3.5-5.1); SODIUM LEVEL 140.0 MMOL/L (136-145)
[2025-03-13] MEDS: traMADol 50 MG TAB PO ONE (18:21)
[2025-03-13 20:00] VITALS: BP 154/75; TEMP 97.7; O2SAT 96
[2025-03-13] MEDS: ACETAMINOPHEN 650 MG ER TAB PO SCH (21:36)
[2025-03-14 04:03] VITALS: BP 152/76; TEMP 98.4; O2SAT 97
[2025-03-14 05:58] LABS: PLATELET COUNT, AUTOMATED 212 10^3/uL (150-450)
[2025-03-14 06:23] LABS: ALT/SGPT 16.0 U/L (7.0-40); AST/SGOT 19.0 U/L (<34); CALCIUM LEVEL 8.6 MG/DL (8.3-10.6); CARBON DIOXIDE LEVEL 31.0 MMOL/L (20-31); CHLORIDE LEVEL 101.0 MMOL/L (98-107); CREATININE FOR GFR 0.77 MG/DL (0.55-1.30); GLOMERULAR FILTRATION RATE 73.7 (>32); POTASSIUM SERUM 5.3 MMOL/L (3.5-5.1); SODIUM LEVEL 140.0 MMOL/L (136-145)
[2025-03-14] MEDS: ENOXAPARIN 40 MG/0.4 ML SYRINGE (J1650 PER 10MG) SC SCH (09:49)
[2025-03-14 12:00] VITALS: BP 104/48; TEMP 98.1; O2SAT 93
[2025-03-14 20:08] VITALS: BP 168/69; TEMP 98.1; O2SAT 94
[2025-03-14 21:00] VITALS: BP 168/69; TEMP 98.1; O2SAT 94
[2025-03-14 22:00] VITALS: BP 168/69; TEMP 98.1; O2SAT 94
[2025-03-15 04:26] VITALS: BP 131/58; TEMP 98.6; O2SAT 93
[2025-03-15 12:00] VITALS: BP 114/52; TEMP 97.7; O2SAT 95
[2025-03-15 19:48] VITALS: BP 144/69; TEMP 99.6; O2SAT 96
[2025-03-15 21:00] VITALS: BP 144/69; TEMP 99.6; O2SAT 96
[2025-03-15 22:00] VITALS: BP 144/69; TEMP 99.6; O2SAT 96
[2025-03-16] VITALS (7 sets, daily range): BP systolic 102–144; BP diastolic 50–67; TEMP 98.1–99; O2SAT 94–98
[2025-03-16 05:48] LABS: PLATELET COUNT, AUTOMATED 188 10^3/uL (150-450)
[2025-03-16 17:34] LABS: CALCIUM LEVEL 8.7 MG/DL (8.3-10.6); CARBON DIOXIDE LEVEL 32.0 MMOL/L (20-31); CHLORIDE LEVEL 103.0 MMOL/L (98-107); CREATININE FOR GFR 0.83 MG/DL (0.55-1.30); GLOMERULAR FILTRATION RATE 67.3 (>32); POTASSIUM SERUM 4.9 MMOL/L (3.5-5.1); SODIUM LEVEL 142.0 MMOL/L (136-145)
[2025-03-17 03:20] VITALS: BP 104/56; TEMP 98.6; O2SAT 96
[2025-03-17 06:00] VITALS: BP 104/56; TEMP 98.6; O2SAT 96
[2025-03-17 08:20] VITALS: BP 116/78
[2025-03-17 11:55] VITALS: BP 126/56; TEMP 98.8; O2SAT 99
[2025-03-17] MEDS: ACETAMINOPHEN 325 MG TAB PO PRN (15:52)
[2025-03-17 21:08] VITALS: BP 124/56; TEMP 99; O2SAT 95
[2025-03-18 03:39] VITALS: BP 158/77; TEMP 98.1; O2SAT 95
[2025-03-18 12:00] VITALS: BP 92/71; TEMP 97.6; O2SAT 96
[2025-03-18 20:00] VITALS: BP 125/76; TEMP 97.9; O2SAT 96
[2025-03-19 03:36] VITALS: BP 133/73; TEMP 95; O2SAT 97
[2025-03-19 03:54] VITALS: TEMP 98.4
[2025-03-19 06:12] LABS: PLATELET COUNT, AUTOMATED 236 10^3/uL (150-450)
[2025-03-19 12:00] VITALS: BP 102/49; O2SAT 98
[2025-03-19 13:12] VITALS: TEMP 98.8
[2025-03-19 20:16] VITALS: BP 157/66; TEMP 98.8; O2SAT 96
[2025-03-20 04:03] VITALS: BP 147/66; TEMP 98.8; O2SAT 98
[2025-03-20 22:00] VITALS: BP 155/76; TEMP 98.8; O2SAT 99
[2025-03-21] VITALS (8 sets, daily range): BP systolic 145–162; BP diastolic 69–78; TEMP 97.2–98.6; O2SAT 95–100
[2025-03-21] MEDS: LR 1,000 ML IV SCH (12:40)
[2025-03-21] MEDS: LIDOCAINE 1% SDV 5 ML VIAL PN ONE (13:05)
[2025-03-21] MEDS: dexAMETHasone 10 MG/1 ML VIAL PRES.FREE PN ONE (13:05)
[2025-03-21] MEDS: ROPIvacaine 0.5% 30ML VIAL PN ONE (13:05)
[2025-03-21 13:34] LABS: CALCIUM LEVEL 8.6 MG/DL (8.3-10.6); CARBON DIOXIDE LEVEL 25.0 MMOL/L (20-31); CHLORIDE LEVEL 106.0 MMOL/L (98-107); CREATININE FOR GFR 0.65 MG/DL (0.55-1.30); GLOMERULAR FILTRATION RATE 84.1 (>32); POTASSIUM SERUM 4.7 MMOL/L (3.5-5.1); SODIUM LEVEL 145.0 MMOL/L (136-145)
[2025-03-21] MEDS ORDERED: dexAMETHasone 4 MG/ML 1 ML VIAL As Ordered ONE (14:03)
[2025-03-21] MEDS ORDERED: LIDOCAINE 2% 100 MG/5 ML SDV (FOR ANES.) As Ordered ONE (14:03)
[2025-03-21] MEDS ORDERED: ONDANSETRON 4MG 2ML VIAL As Ordered ONE (14:03)
[2025-03-21] MEDS ORDERED: PHENYLephrine 500MCG 5ML (100MCG/ML) SYRINGE As Ordered ONE (14:13)
[2025-03-21] MEDS ORDERED: ONDANSETRON 4MG 2ML VIAL IV PRN (14:50)
[2025-03-21] MEDS: ceFAZolin SODIUM 2 GM in DEXTROSE 5% (D5W) ADV/MINI-BAG 50 ML IV SCH (21:10)
[2025-03-22 01:40] VITALS: BP 113/57; TEMP 98.4; O2SAT 96
[2025-03-22 05:40] VITALS: BP 113/70; TEMP 98.4; O2SAT 96
[2025-03-22] MEDS: PERCOCET 5MG/325MG TAB PO PRN (08:28)
[2025-03-22 08:35] LABS: PLATELET COUNT, AUTOMATED 315 10^3/uL (150-450)
[2025-03-22 09:40] VITALS: BP 100/44; TEMP 98.8; O2SAT 95
[2025-03-22 17:40] VITALS: BP 116/55; TEMP 98.4; O2SAT 100
[2025-03-22 22:00] VITALS: BP 145/79; TEMP 98.1; O2SAT 98
[2025-03-23 06:00] VITALS: BP 130/71; TEMP 98.8; O2SAT 95
[2025-03-23 20:23] VITALS: BP 134/70; TEMP 97.5; O2SAT 97
[2025-03-23 22:30] VITALS: O2SAT 97
[2025-03-24 04:17] VITALS: BP 157/71; TEMP 97; O2SAT 94
[2025-03-24 06:09] VITALS: O2SAT 95
[2025-03-24] MEDS ORDERED: MIRALAX *UNIT DOSE* 17 GM PACKET PO PRN (11:55)
[2025-03-24] MEDS: SENNOSIDES/DOCUSATE SODIUM 8.6 MG/50MG TAB PO SCH (12:30)
[2025-03-24] MEDS: MOM 30 ML SUSPENSION UDC PO PRN (12:30)
[2025-03-25 05:29] LABS: PLATELET COUNT, AUTOMATED 279 10^3/uL (150-450)
[2025-03-25 06:32] VITALS: BP 171/88; TEMP 97.9; O2SAT 98
[2025-03-25 09:00] VITALS: BP 170/86
[2025-03-25] MEDS: FLEET ENEMA PR PRN (10:46)
[2025-03-25] MEDS ORDERED: PERCOCET PO (11:34)
[2025-03-25 11:51] VITALS: BP 118/56
[2025-03-25 11:53] VITALS: BP 118/56; TEMP 97.9; O2SAT 96
== END 2025-03-25 12:09 | DRG 512 ==
LOC: EDBD 11:23 → M ED 11:23 → M ED INP 18:17 → M MSPAV 20:05
PROVIDERS: ADMIT Student in an Organized Health Care Education/Training Program; ATTEND Student in an Organized Health Care Education/Training Program
PROC: 0RSM04Z Reposition Left Elbow Joint with Internal Fixation Device, Open Approach (ICD-10-PCS; principal; 2025-03-21 13:30)
DX: S52.022A Displaced fracture of olecranon process without intraarticular extension of left ulna, initial encounter for closed fracture (principal); I10 Essential (primary) hypertension; Z95.0 Presence of cardiac pacemaker; F03.90 Unspecified dementia, unspecified severity, without behavioral disturbance, psychotic disturbance, mood disturbance, and anxiety; W19.XXXA Unspecified fall, initial encounter; Y92.009 Unspecified place in unspecified non-institutional (private) residence as the place of occurrence of the external cause; Z79.899 Other long term (current) drug therapy; Z88.2 Allergy status to sulfonamides

== ENCOUNTER → 2025-03-31 | Outpatient (REF) ==
[~2025-03-31] MED LIST changes: +ACET650T61 PO; +CARV6.25 PO; +DICL20GE TOP; +VITA1CAP25 PO
[2025-03-31 10:15] LABS: PLATELET COUNT, AUTOMATED 350 10^3/uL (150-450)
[2025-03-31 10:49] LABS: CALCIUM LEVEL 8.9 MG/DL (8.3-10.6); CARBON DIOXIDE LEVEL 29.0 MMOL/L (20-31); CHLORIDE LEVEL 103.0 MMOL/L (98-107); CREATININE FOR GFR 0.67 MG/DL (0.55-1.30); GLOMERULAR FILTRATION RATE 83.5 (>32); POTASSIUM SERUM 4.3 MMOL/L (3.5-5.1); SODIUM LEVEL 144.0 MMOL/L (136-145)
== END ==
PROVIDERS: ATTEND Physician Assistant
DX: I10 Essential (primary) hypertension (principal)

== ENCOUNTER → 2025-03-31 | Outpatient (REF) | payer MEDICARE | LOC: M SOG 06:54 → EDSTATUS 08:42 | PROVIDERS: ATTEND Physician Assistant | DX: M25.522 Pain in left elbow (principal) ==

== ENCOUNTER → 2025-04-04 | Outpatient (REF) | LOC: M PLALAB 12:04 | PROVIDERS: ATTEND Physician Assistant | DX: M79.675 Pain in left toe(s) (principal) ==

== ENCOUNTER → 2025-04-07 | Outpatient (REF) ==
[2025-04-07 11:01] LABS: PLATELET COUNT, AUTOMATED 293 10^3/uL (150-450)
[2025-04-07 11:19] LABS: CALCIUM LEVEL 8.6 MG/DL (8.3-10.6); CARBON DIOXIDE LEVEL 27.0 MMOL/L (20-31); CHLORIDE LEVEL 102.0 MMOL/L (98-107); CREATININE FOR GFR 0.79 MG/DL (0.55-1.30); GLOMERULAR FILTRATION RATE 71.5 (>32); POTASSIUM SERUM 4.5 MMOL/L (3.5-5.1); SODIUM LEVEL 142.0 MMOL/L (136-145)
== END ==
PROVIDERS: ATTEND Physician Assistant
DX: I10 Essential (primary) hypertension (principal)

== ENCOUNTER → 2025-04-21 | Outpatient (REF) ==
[2025-04-21 11:09] LABS: PLATELET COUNT, AUTOMATED 305 10^3/uL (150-450)
[2025-04-21 11:44] LABS: CALCIUM LEVEL 9.0 MG/DL (8.3-10.6); CARBON DIOXIDE LEVEL 30.0 MMOL/L (20-31); CHLORIDE LEVEL 101.0 MMOL/L (98-107); CREATININE FOR GFR 0.87 MG/DL (0.55-1.30); GLOMERULAR FILTRATION RATE 63.7 (>32); POTASSIUM SERUM 4.8 MMOL/L (3.5-5.1); SODIUM LEVEL 141.0 MMOL/L (136-145)
== END ==
PROVIDERS: ATTEND Physician Assistant
DX: I10 Essential (primary) hypertension (principal)

== ENCOUNTER → 2025-05-09 | Outpatient (REF) | payer MEDICARE ==
[~2025-05-09] MED LIST changes: -VITA100T14 PO; +VITA100T69 PO
== END ==
LOC: M SOG 07:27 → EDSTATUS 09:28
PROVIDERS: ATTEND Physician Assistant
DX: M25.522 Pain in left elbow (principal)

== ENCOUNTER → 2025-05-19 | Outpatient (REF) ==
[2025-05-19 11:44] LABS: PLATELET COUNT, AUTOMATED 291 10^3/uL (150-450)
[2025-05-19 12:19] LABS: CALCIUM LEVEL 9.6 MG/DL (8.3-10.6); CARBON DIOXIDE LEVEL 31.0 MMOL/L (20-31); CHLORIDE LEVEL 102.0 MMOL/L (98-107); CREATININE FOR GFR 0.81 MG/DL (0.55-1.30); GLOMERULAR FILTRATION RATE 69.3 (>32); POTASSIUM SERUM 4.1 MMOL/L (3.5-5.1); SODIUM LEVEL 143.0 MMOL/L (136-145)
== END ==
PROVIDERS: ATTEND Physician Assistant
DX: I10 Essential (primary) hypertension (principal)